=== PATIENT | female | born 1950 | race Caucasian/White ===

== ENCOUNTER 2020-04-05 13:27 | Emergency (ER) | payer MEDICARE, OTHER ==
[2020-04-05 13:34] VITALS: RESP 18; TEMP 98.3
--- NOTE | 2020-04-05 14:08 | ED ---
Extremity Problem HPI - General Chief complaint: Extremity Problem,Nontraumatic Stated complaint: Poss blood clot Time Seen by Provider: 04/05/20 13:36 Source: patient Mode of arrival: wheelchair Limitations: no limitations - History of Present Illness Initial comments: Patient is a 69-year-old female presenting to the emergency department from urgent care to rule out a DVT. Patient has been having right-sided groin and right upper leg pain for the past couple weeks. She states that she did have a fall a few weeks ago on her porch however she felt like the pain was there before her fall. One month ago she did drive to [place] from [place], spent approximately 3 days and out of the vehicle. She denies any surgeries of her right hip or right leg. She denies history of DVTs. She denies being on blood thinner. She states she went to urgent care today and they sent her in the ER for an ultrasound. Patient has no further complaints at this time. Upon arrival to the ER, her vital signs are stable. - Related Data Allergies Allergy/AdvReac Type Severity Reaction Status Date / Time No Known Allergies Allergy Verified 04/05/20 13:33 Review of Systems ROS Statement: Those systems with pertinent positive or pertinent negative responses have been documented in the HPI. ROS Other: All systems not noted in ROS Statement are negative. Past Medical History Past Medical History: COPD, Hypertension Additional Past Medical History / Comment(s): angina History of Any Multi-Drug Resistant Organisms: None Reported Additional Past Surgical History / Comment(s): ablation to bilateral legs. Past Psychological History: No Psychological Hx Reported Smoking Status: Current every day smoker Past Alcohol Use History: None Reported Past Drug Use History: None Reported General Exam - General Exam Comments Initial Comments: GENERAL: Patient is well-developed and well-nourished. Patient is nontoxic and in no acute distress. HEAD: Atraumatic, normocephalic. EYES: Pupils equal round and reactive to light, extraocular movements intact, sclera anicteric, conjunctiva are normal. Eyelids were unremarkable. ENT: TMs normal, nares patent, oropharynx clear without exudates. Moist mucous membranes. NECK: Normal range of motion, supple without lymphadenopathy or JVD. LUNGS: Unlabored respirations. Breath sounds clear to auscultation bilaterally and equal. No wheezes rales or rhonchi. HEART: Regular rate and rhythm without murmurs, rubs or gallops. ABDOMEN: Soft, nontender, normoactive bowel sounds. No guarding, no rebound. No masses appreciated. : Deferred MUSCULOSKELETAL: mild discomfort with palpation of the right anterior hip, full range of motion. She is neurovascular intact bilateral lower extremities. Normal extremities with adequate strength and normal range of motion, no pitting or edema. No clubbing or cyanosis. NEUROLOGICAL: Patient is alert and oriented x 3. Motor and sensory are also intact. Cranial nerves II through XII grossly intact. Symmetrical smile. Normal speech, normal gait. PSYCH: Normal mood, normal affect. SKIN: Warm, Dry, normal turgor, no rashes or lesions noted. Limitations: no limitations Course Vital Signs 04/05/20 13:29 Temperature 98.3 F Pulse Rate 76 Respiratory 18 Rate Blood Pressure 165/68 O2 Sat by Pulse 97 Oximetry Medical Decision Making - Medical Decision Making patient is a 69-year-old female sent in for possible DVT of the right lower extremity. She did have a very lengthy road trip one month ago and has been having right hip pain and right upper leg pain. X-rays reveal no acute frac tures dislocations. Ultrasound reveals no evidence of a DVT. I discussed with patient this is most likely arthritis or muscle skeletal in nature. I recommended anti-inflammatories. We will give her Toradol here in the ER. Patient is stable for discharge. Patient is in agreement with this plan of care. Return parameters were discussed with the patient and they verbalized un derstanding. Case discussed with Dr. Lamar. Disposition Clinical Impression: Right hip pain Disposition: HOME SELF-CARE Condition: Stable Instructions (If sedation given, give patient instructions): Hip Pain (ED) Additional Instructions: Please return to the Emergency Department if symptoms worsen or any other concerns. X-rays of the right hip and ultrasound of the right leg revealed no evidence of acute fractures or acute DVT. Please follow-up with your regular doctor or orthopedic if needed. Is patient prescribed a controlled substance at d/c from ED?: No Referrals: None,Stated [Primary Care Provider] - 1-2 days Howie Westbrook MD [STAFF PHYSICIAN] - 1-2 days
--- NOTE | 2020-04-05 15:09 | XR ---
EXAMINATION TYPE: XR Hip Complete RT DATE OF EXAM: 04/05/2020 COMPARISON: None HISTORY: Right hip pain TECHNIQUE: 2 view right hip supplemented with AP pelvis FINDINGS: Femoral head articulates with the acetabulum. No acute fractures or dislocations are eviden t. Left femoral head articulates with the acetabulum. Symphysis pubis and sacroiliac joints are normal. Normal bowel gas is present. IMPRESSION: 1. Normal 2 view right hip
--- NOTE | 2020-04-05 15:30 | US ---
EXAMINATION TYPE: US venous doppler duplex LE RT DATE OF EXAM: 04/05/2020 3:25 PM COMPARISON: NONE CLINICAL HISTORY: right upper leg pain, recent long car ride. Pain SIDE PERFORMED: Right TECHNIQUE: The lower extremity deep venous system is examined utilizing real time linear array sonog rosa with graded compression, doppler sonography and color-flow sonography. VESSELS IMAGED: Common Femoral Vein Deep Femoral Vein Greater Saphenous Vein * Femoral Vein Popliteal Vein Small Saphenous Vein * Proximal Calf Veins (* superficial vessels) Right Leg: Negative for DVT IMPRESSION: 1. Right lower extremity ultrasound negative for deep venous stenosis.
[2020-04-05] MEDS ORDERED: KETOROLAC 15 MG/ML 1 ML VIAL IM STA (15:36)
[2020-04-05 15:53] VITALS: BP 123/82; PULSE 78
== END 2020-04-05 15:52 | disposition home or self-care (01) ==
LOC: EC 13:27
DX: M25.551 Pain in right hip (principal); F17.200 Nicotine dependence, unspecified, uncomplicated
CPT/HCPCS: 73502; 93971; 99284; 96372; J1885

== ENCOUNTER → 2020-08-17 | Outpatient (CLI) | payer MEDICARE, OTHER ==
--- NOTE | 2020-08-17 15:02 | XR ---
EXAMINATION TYPE: XR chest 2V DATE OF EXAM: 08/17/2020 COMPARISON: NONE HISTORY: Worsening COPD TECHNIQUE: Frontal and lateral views of the chest are obtained. FINDINGS: There is no focal air space opacity, pleural effusion, or pneumothorax seen. The cardiac silhouette size is within normal limits. The osseous structures are intact. IMPRESSION: No acute cardiopulmonary process.
== END | disposition home or self-care (01) ==
LOC: RADXRMAIN 14:42
PROVIDERS: ATTEND Nurse Practitioner Family
DX: J44.9 Chronic obstructive pulmonary disease, unspecified (principal)
CPT/HCPCS: 71046

== ENCOUNTER 2024-04-25 08:50 | Inpatient (IN) | payer MEDICARE, OTHER ==
[2024-04-25] MEDS: IPRATROPIUM-ALBUTEROL 3 ML NEB INHALATION STA ×2 (09:11→12:52)
[2024-04-25] MEDS: MAGNESIUM SULFATE-D5W PMX 1 GM in DEXTROSE/WATER 1 100ML.BAG IVPB STA (09:24)
[2024-04-25] MEDS: methylPREDNISolone SOD SUCCI 125 MG/2 ML VIAL IV STA (09:24)
[2024-04-25] MEDS: SODIUM CHLORIDE 0.9% 1,000 ML IV STA (09:25)
[2024-04-25 09:37] LABS: Basophils % (A) 0 %; Eosinophils # (A) 0.1 k/uL (0-0.7); Eosinophils % (A) 0 %; HCT 38.7 % (34.0-46.0); HGB 11.7 gm/dL (11.4-16.0); Hypochromasia Moderate; Lymphocytes # (A) 1.2 k/uL (1.0-4.8); Lymphocytes % (A) 8 %; MCH 27.2 pg (25.0-35.0); MCHC 30.1 g/dL (31.0-37.0); MCV 90.4 fL (80.0-100.0); Mean Platelet Volume 7.8; Monocytes % (A) 7 %; Neutrophils # (A) 11.9 k/uL (1.3-7.7); Neutrophils % (A) 83 %; Platelet Count 229 k/uL (150-450); RBC 4.28 m/uL (3.80-5.40); RDW 15.7 % (11.5-15.5); WBC 14.3 k/uL (3.8-10.6)
[2024-04-25 09:38] LABS: Partial Thromboplastin Time 22.1 sec (22.0-30.0); Prothrombin Time 11.1 sec (10.0-12.5)
[2024-04-25 09:45] LABS: ALT 21 U/L (4-34); AST 37 U/L (14-36); African American GFR (CKD) 70 (>60 ml/min/1.73 sqM); Albumin 4.2 g/dL (3.5-5.0); Alkaline Phosphatase 108 U/L (38-126); Anion Gap 9 mmol/L; Blood Urea Nitrogen 21 mg/dL (7-17); Calcium 9.1 mg/dL (8.4-10.2); Carbon Dioxide 29 mmol/L (22-30); Chloride 100 mmol/L (98-107); Glucose 111 mg/dL (74-99); Magnesium 1.8 mg/dL (1.6-2.3); Non-African American GFR(CKD) 61 (>60 ml/min/1.73 sqM); Potassium 4.3 mmol/L (3.5-5.1); Sodium 138 mmol/L (137-145); Total Bilirubin 0.6 mg/dL (0.2-1.3); Total Protein 7.4 g/dL (6.3-8.2)
--- NOTE | 2024-04-25 09:50 | XR ---
EXAMINATION TYPE: XR chest 2V DATE OF EXAM: 04/25/2024 9:46 AM COMPARISON: None. CLINICAL INDICATION: Female, 73 years old with history of difficulty breathing, wheezing, short of br eath TECHNIQUE: XR chest 2V view(s) obtained. FINDINGS: The heart size is normal. The pulmonary vasculature is normal. The lungs are clear. IMPRESSION: 1. No acute pulmonary process. [facility], , 04/25/2024 9:48 AM
[2024-04-25 10:05] LABS: Influenza A Not Detected (Not Detectd); Influenza B Not Detected (Not Detectd); RSV Detected (Not Detectd)
[2024-04-25 10:23] LABS: Appearance,Urine Clear (Clear); Bilirubin,Urine Negative (Negative); Blood,Urine Trace (Negative); Color,Urine Yellow; Glucose,Urine (UA) Negative (Negative); Ketones,Urine Negative (Negative); Leukocyte Esterase,Urine Trace (Negative); Mucus,Urine Rare /hpf; Nitrite,Urine Negative (Negative); Protein,Urine Negative (Negative); RBC,Urine 1 /hpf (0-5); Squamous Epithelial Cell,Urine 2 /hpf (0-4); Urobilinogen,Urine <2.0 mg/dL (<2.0); WBC,Urine 1 /hpf (0-5)
[2024-04-25] MEDS ORDERED: ACETAMINOPHEN TAB 325 MG TAB PO PRN (12:21)
[2024-04-25] MEDS ORDERED: NALOXONE 0.4 MG/ML 1 ML VIAL IV PRN (12:21)
--- NOTE | 2024-04-25 12:23 | ED ---
General Adult HPI - General Chief complaint: Shortness of Breath Stated complaint: GLORIA Time Seen by Provider: 04/25/24 09:00 Source: patient, family, RN notes reviewed, old records reviewed Mode of arrival: wheelchair Limitations: no limitations - History of Present Illness Initial comments: Patient is a 73-year-old female presents emergency department complaining of shortness of breath. Presents to the emergency department complaining of s hortness of breath for few days. Seen at urgent care on Thursday and started treatment for bronchitis and COPD. States that she felt worse this morning. Was found to be hypoxic on room air in triage. Is not normally on any oxygen at home. Endorses cough productive of a darker sputum. Endorses increased work of breathing. Denies any chest pain, nausea, vomiting, abdominal pain. Has no other acute complaints. Presents for further evaluation at this time. - Related Data Home Medications Medication Instructions Recorded Confirmed Albuterol Sulfate [Albuterol 2 puff INHALATION RT-Q4H PRN 04/25/24 04/25/24 Sulfate Hfa] Atorvastatin [Lipitor] 10 mg PO DAILY 04/25/24 04/25/24 Doxycycline Hyclate 100 mg PO Q12H 04/25/24 04/25/24 Esomeprazole Magnesium [NexIUM] 40 mg PO DAILY 04/25/24 04/25/24 Fluticasone/Umeclidin/Vilanter 1 puff INHALATION RT-DAILY 04/25/24 04/25/24 [Trelegy Ellipta 200-62.5-25] Ipratropium-Albuterol Nebulize 3 ml INHALATION RT-Q6H PRN 04/25/24 04/25/24 [Duoneb 0.5 mg-3 mg/3 ml Soln] Levothyroxine Sodium [Synthroid] 25 mcg PO DAILY 04/25/24 04/25/24 Montelukast [Singulair] 10 mg PO DAILY 04/25/24 04/25/24 Nebivolol HCl 40 mg PO DAILY 04/25/24 04/25/24 Nitroglycerin Sl Tabs [Nitrostat] 0.4 mg SL Q5M PRN 04/25/24 04/25/24 Olmesartan Medoxomil 40 mg PO DAILY 04/25/24 04/25/24 Sertraline [Zoloft] 100 mg PO DAILY 04/25/24 04/25/24 amLODIPine [Norvasc] 5 mg PO DAILY 04/25/24 04/25/24 methylPREDNISolone [Medrol Dose See Taper PO DIRECTED 04/25/24 04/25/24 Pack] Allergies Allergy/AdvReac Type Severity Reaction Status Date / Time No Known Allergies Allergy Verified 04/25/24 10:39 Review of Systems ROS Statement: Those systems with pertinent positive or pertinent negative responses have been documented in the HPI. Review of Systems: CONST: Denies fever EYES: Denies blurry vision ENT: Endorses nasal congestion C/V: Denies Chest pain RESP: Endorses shortness of breath GI: Denies abdominal pain : Denies dysuria SKIN: Denies rash. MSK: Denies joint pain. NEURO: Denies headache ROS Other: All systems not noted in ROS Statement are negative. Past Medical History Past Medical History: COPD, Hypertension Additional Past Medical History / Comment(s): angina History of Any Multi-Drug Resistant Organisms: None Reported Additional Past Surgical History / Comment(s): ablation to bilateral legs. Past Psychological History: No Psychological Hx Reported Smoking Status: Current every day smoker Past Alcohol Use History: None Reported Past Drug Use History: None Reported General Exam - General Exam Comments Initial Comments: General: Increased work of breathing. HEAD: Normal with no signs of head trauma. EYES: PERRLA, EOMI, conjunctiva normal, no discharge. ENT: Hearing grossly intact, normal oropharynx. RESPIRATORY: Bilateral coarse wheezes with hypoxia on room air to 84%. Increased work of breathing. Oxygenation improved on nasal cannula oxygen. C/V: Regular rate and rhythm. S1 and S2 auscultated, no edema, peripheral pulses 2+ and intact throughout ABD: Abd is soft, nontender, nondistended EXT: Normal range of motion, no obvious deformity SKIN: No rashes or lesions observed on exposed skin. NEURO: Alert and oriented x 4. Limitations: no limitations Course Vital Signs 04/25/24 04/25/24 04/25/24 08:51 09:12 09:29 Temperature 97.7 F Pulse Rate 79 66 64 Respiratory 28 H Rate Blood Pressure 245/105 166/87 O2 Sat by Pulse 84 L Oximetry 04/25/24 04/25/24 04/25/24 10:38 11:28 12:20 Temperature 97.5 F L Pulse Rate 61 61 65 Respiratory 24 20 22 Rate Blood Pressure 166/87 146/75 158/83 O2 Sat by Pulse 100 100 97 Oximetry 04/25/24 04/25/24 04/25/24 12:42 12:43 12:52 Temperature Pulse Rate 61 Respiratory Rate Blood Pressure O2 Sat by Pulse 86 L 95 96 Oximetry 04/25/24 04/25/24 04/25/24 13:14 13:28 14:32 Temperature Pulse Rate 60 63 67 Respiratory 22 20 Rate Blood Pressure 138/71 136/66 O2 Sat by Pulse 95 95 Oximetry Medical Decision Making - Medical Decision Making Was pt. sent in by a medical professional or institution (, PA, MANAGER STORE, urgent care, hospital, or skilled nursing...) When possible be specific @ -No Did you speak to anyone other than the patient for history (EMS, parent, family, police, friend...)? What history was obtained from this source @ -No Did you review nursing and triage notes (agree or disagree)? Why? @ -I reviewed and agree with nursing and triage notes Were old charts reviewed (outside hosp., previous admission, EMS record, old EKG, old radiological studies, urgent care reports/EKG's, skilled nursing records)? Report findings @ -Old charts reviewed confirming history of COPD Differential Diagnosis (chest pain, altered mental status, abdominal pain women, abdominal pain men, vaginal bleeding, weakness, fever, dyspnea, syncope, headache, dizziness, GI bleed, back pain, seizure, CVA, palpatations, mental health, musculoskeletal)? @ -Differential Dyspnea: Coronary syndrome, arrhythmia, tamponade, asthma, COPD, pulmonary embolism, pneumonia, pneumothorax, pulmonary effusion, anaphylaxis, diabetic ketoacidosis, flailed chest, pulmonary contusion, diaphragmatic rupture, anemia, neuromuscular, this is not meant to be an all-inclusive list. EKG interpreted by me (3pts min.). @ -As above X-rays interpreted by me (1pt min.). @ -Chest x-ray reveals no obvious acute cardiopulmonary process CT interpreted by me (1pt min.). @ -None done U/S interpreted by me (1pt. min.). @ -None done What testing was considered but not performed or refused? (CT, X-rays, U/S, labs)? Why? @ -None What meds were considered but not given or refused? Why? @ -None Did you discuss the management of the patient with other professionals (professionals i.e. , PA, MANAGER STORE, lab, RT, psych nurse, social services manager, pier hand helper, teacher, commercial escrow officer, casework supervisor)? Give summary @ -Discussed with the admitting provider, Dr. Larson of [facility] who accepted the admission. Was smoking cessation discussed for >3mins.? @ -No Was critical care preformed (if so, how long)? @ -Yes, 33 minutes Were there social determinants of health that impacted care today? How? (Homelessness, low income, unemployed, alcoholism, drug addiction, transp ortation, low edu. Level, literacy, decrease access to med. care, residential, rehab)? @ -No Was there de-escalation of care discussed even if they declined (Discuss DNR or withdrawal of care, Hospice)? DNR status @ -No What co-morbidities impacted this encounter? (DM, HTN, Smoking, COPD, CAD, Cancer, CVA, ARF, Chemo, Hep., AIDS, mental health diagnosis, sleep apnea, morbid obesity)? @ -COPD Was patient admitted / discharged? Hospital course, mention meds given and route, prescriptions, significant lab abnormalities, going to OR and other pertinent info. @ -Patient presents to the emergency department acute hypoxic respiratory failure likely secondary to URI symptoms and COPD. Vital signs remarkable for hypoxia in triage on room air which improved on 4 L nasal cannula oxygen. Patient be symptomatically treated with IV steroids, fluids as well as a breathing treatment. Patient was in agreement this plan. Vital signs are within acceptable limits otherwise. EKG shows no signs of acute ischemia. Chest x-ray unremarkable. Laboratory studies are remarkable for leukocytosis of 14 however this is likely reactive. Patient is positive for RSV bronchiolitis. I discussed the results with the patient. She is still requiring nasal cannula oxygen. Patient will be admitted at this time. Will continue with IV steroid use, IV fluids, as well as breathing treatments. I did discuss that antibiotics are not indicated for viral infection she was in agreement this plan. Pulmonology consulted. Patient admitted to medicine. Spoke with the admitting team, Dr. Larson of [facility] who accepted the admission. Undiagnosed new problem with uncertain prognosis? @ -No Drug Therapy requiring intensive monitoring for toxicity (Heparin, Nitro, Insulin, Cardizem)? @ -No Were any procedures done? @ -No Diagnosis/symptom? @ -Acute hypoxic respiratory failure secondary to COPD and RSV bronchiolitis Acute, or Chronic, or Acute on Chronic? @ -Acute Uncomplicated (without systemic symptoms) or Complicated (systemic symptoms)? @ -Complicated Side effects of treatment? @ -No Exacerbation, Progression, or Severe Exacerbation? @ -No Poses a threat to life or bodily function? How? (Chest pain, [place], [place], pneumonia, PE, COPD, DKA, ARF, appy, cholecystitis, CVA, Diverticulitis, Homicidal, Suicidal, threat to staff... and all critical care pts) @ -Yes - Lab Data Result diagrams: 04/25/24 09:16 04/25/24 09:16 Lab Results 04/25/24 04/25/24 04/25/24 Range/Units 09:16 09:16 09:16 WBC 14.3 H (3.8-10.6) k/uL RBC 4.28 (3.80-5.40) m/uL Hgb 11.7 (11.4-16.0) gm/dL Hct 38.7 (34.0-46.0) % MCV 90.4 (80.0-100.0) fL MCH 27.2 (25.0-35.0) pg MCHC 30.1 L (31.0-37.0) g/dL RDW 15.7 H (11.5-15.5) % Plt Count 229 (150-450) k/uL MPV 7.8 Neutrophils % 83 % Lymphocytes % 8 % Monocytes % 7 % Eosinophils % 0 % Basophils % 0 % Neutrophils # 11.9 H (1.3-7.7) k/uL Lymphocytes # 1.2 (1.0-4.8) k/uL Monocytes # 1.0 (0-1.0) k/uL Eosinophils # 0.1 (0-0.7) k/uL Basophils # 0.0 (0-0.2) k/uL Hypochromasia Moderate PT 11.1 (10.0-12.5) sec INR 1.0 (<1.2) APTT 22.1 (22.0-30.0) sec Sodium (137-145) mmol/L Potassium (3.5-5.1) mmol/L Chloride (98-107) mmol/L Carbon Dioxide (22-30) mmol/L Anion Gap mmol/L BUN (7-17) mg/dL Creatinine (0.52-1.04) mg/dL Est GFR (CKD-EPI)AfAm (>60 ml/min/1.73 sqM) Est GFR (CKD-EPI)NonAf (>60 ml/min/1.73 sqM) Glucose (74-99) mg/dL Plasma Lactic Acid Avel (0.7-2.0) mmol/L Calcium (8.4-10.2) mg/dL Magnesium (1.6-2.3) mg/dL Total Bilirubin (0.2-1.3) mg/dL AST (14-36) U/L ALT (4-34) U/L Alkaline Phosphatase (38-126) U/L Total Protein (6.3-8.2) g/dL Albumin (3.5-5.0) g/dL Urine Color Yellow Urine Appearance Clear (Clear) Urine pH 5.0 (5.0-8.0) Ur Specific [place] 1.020 (1.001-1.035) Urine Protein Negative (Negative) Urine Glucose (UA) Negative (Negative) Urine Ketones Negative (Negative) Urine Blood Trace H (Negative) Urine Nitrite Negative (Negative) Urine Bilirubin Negative (Negative) Urine Urobilinogen <2.0 (<2.0) mg/dL Ur Leukocyte Esterase Trace H (Negative) Urine RBC 1 (0-5) /hpf Urine WBC 1 (0-5) /hpf Ur Squamous Epith Cells 2 (0-4) /hpf Urine Mucus Rare H (None) /hpf Influenza Type A (PCR) (Not Detectd) Influenza Type B (PCR) (Not Detectd) RSV (PCR) (Not Detectd) SARS-CoV-2 (PCR) (Not Detectd) 04/25/24 04/25/24 04/25/24 Range/Units 09:16 09:16 09:16 WBC (3.8-10.6) k/uL RBC (3.80-5.40) m/uL Hgb (11.4-16.0) gm/dL Hct (34.0-46.0) % MCV (80.0-100.0) fL MCH (25.0-35.0) pg MCHC (31.0-37.0) g/dL RDW (11.5-15.5) % Plt Count (150-450) k/uL MPV Neutrophils % % Lymphocytes % % Monocytes % % Eosinophils % % Basophils % % Neutrophils # (1.3-7.7) k/uL Lymphocytes # (1.0-4.8) k/uL Monocytes # (0-1.0) k/uL Eosinophils # (0-0.7) k/uL Basophils # (0-0.2) k/uL Hypochromasia PT (10.0-12.5) sec INR (<1.2) APTT (22.0-30.0) sec Sodium 138 (137-145) mmol/L Potassium 4.3 (3.5-5.1) mmol/L Chloride 100 (98-107) mmol/L Carbon Dioxide 29 (22-30) mmol/L Anion Gap 9 mmol/L BUN 21 H (7-17) mg/dL Creatinine 0.93 (0.52-1.04) mg/dL Est GFR (CKD-EPI)AfAm 70 (>60 ml/min/1.73 sqM) Est GFR (CKD-EPI)NonAf 61 (>60 ml/min/1.73 sqM) Glucose 111 H (74-99) mg/dL Plasma Lactic Acid Avel 1.2 (0.7-2.0) mmol/L Calcium 9.1 (8.4-10.2) mg/dL Magnesium 1.8 (1.6-2.3) mg/dL Total Bilirubin 0.6 (0.2-1.3) mg/dL AST 37 H (14-36) U/L ALT 21 (4-34) U/L Alkaline Phosphatase 108 (38-126) U/L Total Protein 7.4 (6.3-8.2) g/dL Albumin 4.2 (3.5-5.0) g/dL Urine Color Urine Appearance (Clear) Urine pH (5.0-8.0) Ur Specific [place] (1.001-1.035) Urine Protein (Negative) Urine Glucose (UA) (Negative) Urine Ketones (Negative) Urine Blood (Negative) Urine Nitrite (Negative) Urine Bilirubin (Negative) Urine Urobilinogen (<2.0) mg/dL Ur Leukocyte Esterase (Negative) Urine RBC (0-5) /hpf Urine WBC (0-5) /hpf Ur Squamous Epith Cells (0-4) /hpf Urine Mucus (None) /hpf Influenza Type A (PCR) Not Detected (Not Detectd) Influenza Type B (PCR) Not Detected (Not Detectd) RSV (PCR) Detected A (Not Detectd) SARS-CoV-2 (PCR) Not Detected (Not Detectd) - EKG Data -: EKG Interpreted by Me EKG Comments: 12-lead Electrocardiogram Interpretation Note EKG was reviewed and interpreted by myself. 12-lead ECG performed at 0908 is interpreted by me as revealing normal sinus rhythm at a rate of 64 beats per minute. [place] is normal. [place] interval is 153 ms, QRS durations 82 ms, QTc is 394 ms.. There were no ST or T wave abnormalities to suggest myocardial ischemia or injury. R wave progression across the precordium was satisfactory. By my interpretation this EKG is non-diagnostic for acute ischemia. Critical Care Time Critical Care Time: Yes Total Critical Care Time: 33 Disposition Clinical Impression: COPD (chronic obstructive pulmonary disease), Hypoxic respiratory failure, RSV bronchiolitis Disposition: ADMITTED IP TO THIS HOSP Condition: Serious Time of Disposition: 12:05
[2024-04-25] MEDS: SODIUM CHLORIDE 0.9% 1,000 ML IV SCH (12:37)
[2024-04-25] MEDS: methylPREDNISolone SOD SUCCI 40 MG/ML 1 ML VIAL IV SCH (15:35)
[2024-04-25] MEDS: IPRATROPIUM-ALBUTEROL 3 ML NEB INHALATION SCH (16:08)
--- NOTE | 2024-04-25 18:56 | P.HPIM ---
History of Present Illness Patient is a pleasant 73 years old female with past medical history as below Presents because of shortness of breath of 10 days duration Patient complaining from cough and clear phlegm but no overt chest pain She smokes about half pack per day and she was counseled to quit, she declines nicotine patch. No alcohol or illicit drugs No other new complaint like abdominal pain vomiting diarrhea no urinary complaint or headache dizziness weakness numbness She was saturating 85% on room air, currently she is mildly tachypneic She has unremarkable labs except for mild leukocytosis of 14.1, rest of CBC, BMP LFT is unremarkable RSV virus is positive while negative influenza and COVID Chest x-ray showing no acute process, I reviewed myself and agree EKG showing sinus rhythm at [address]-T changes Review of Systems Review of systems CONSTITUTIONAL: No fever, no malaise, no fatigue. HEENT: No recent visual problems or hearing problems. Denied any sore throat. CARDIOVASCULAR: No orthopnea, PND, no palpitations, no syncope. PULMONARY: No chest wall tenderness, no hemoptysis. GASTROINTESTINAL: No diarrhea, no nausea, no vomiting, no abdominal pain. Normoactive bowel sounds. NEUROLOGICAL: No headaches, no weakness, no numbness. HEMATOLOGICAL: Denies any bleeding or petechiae. GENITOURINARY: Denies any burning micturition, frequency, or urgency. MUSCULOSKELETAL/RHEUMATOLOGICAL: Denies any joint pain, swelling, or any muscle pain. ENDOCRINE: Denies any polyuria or polydipsia. Past Medical History Past Medical History: COPD, Hypertension Additional Past Medical History / Comment(s): angina History of Any Multi-Drug Resistant Organisms: None Reported Additional Past Surgical History / Comment(s): ablation to bilateral legs. Past Psychological History: No Psychological Hx Reported Smoking Status: Current every day smoker Past Alcohol Use History: None Reported Past Drug Use History: None Reported Medications and Allergies Home Medications Medication Instructions Recorded Confirmed Type Albuterol Sulfate [Albuterol 2 puff INHALATION RT-Q4H PRN 04/25/24 04/25/24 History Sulfate Hfa] Atorvastatin [Lipitor] 10 mg PO DAILY 04/25/24 04/25/24 History Doxycycline Hyclate 100 mg PO Q12H 04/25/24 04/25/24 History Esomeprazole Magnesium [NexIUM] 40 mg PO DAILY 04/25/24 04/25/24 History Fluticasone/Umeclidin/Vilanter 1 puff INHALATION RT-DAILY 04/25/24 04/25/24 History [Trelegy Ellipta 200-62.5-25] Ipratropium-Albuterol Nebulize 3 ml INHALATION RT-Q6H PRN 04/25/24 04/25/24 History [Duoneb 0.5 mg-3 mg/3 ml Soln] Levothyroxine Sodium [Synthroid] 25 mcg PO DAILY 04/25/24 04/25/24 History Montelukast [Singulair] 10 mg PO DAILY 04/25/24 04/25/24 History Nebivolol HCl 40 mg PO DAILY 04/25/24 04/25/24 History Nitroglycerin Sl Tabs [Nitrostat] 0.4 mg SL Q5M PRN 04/25/24 04/25/24 History Olmesartan Medoxomil 40 mg PO DAILY 04/25/24 04/25/24 History Sertraline [Zoloft] 100 mg PO DAILY 04/25/24 04/25/24 History amLODIPine [Norvasc] 5 mg PO DAILY 04/25/24 04/25/24 History methylPREDNISolone [Medrol Dose See Taper PO DIRECTED 04/25/24 04/25/24 History Pack] Allergies Allergy/AdvReac Type Severity Reaction Status Date / Time No Known Allergies Allergy Verified 04/25/24 10:39 Physical Exam Vitals: Vital Signs Temp Pulse Resp BP Pulse Ox 04/25/24 17:58 97.7 F 68 18 136/57 96 04/25/24 16:18 63 04/25/24 16:08 65 04/25/24 16:03 64 20 141/80 96 04/25/24 15:37 97.3 F L 66 20 132/84 96 04/25/24 14:32 67 20 136/66 95 04/25/24 13:28 63 22 138/71 95 04/25/24 13:14 60 04/25/24 12:52 61 96 04/25/24 12:43 95 04/25/24 12:42 86 L 04/25/24 12:20 65 22 158/83 97 04/25/24 11:28 97.5 F L 61 20 146/75 100 04/25/24 10:38 61 24 166/87 100 02/24/25 09:29 64 04/25/24 09:12 66 166/87 04/25/24 08:51 97.7 F 79 28 H 245/105 84 L Intake and Output 04/25/24 04/25/24 04/25/24 06:59 14:59 22:59 Other: Weight 85.729 kg GENERAL: The patient is alert and oriented x3, not in any acute distress. Well developed, well nourished. HEENT: Pupils are round and equally reacting to light. EOMI. No scleral icterus. No conjunctival pallor. Normocephalic, atraumatic. No pharyngeal erythema. No thyromegaly. CARDIOVASCULAR: S1 and S2 present. No murmurs, rubs, or gallops. -PULMONARY: Chest is clear to auscultation, extensive bilateral wheezing , no crackles. ABDOMEN: Soft, nontender, nondistended, normoactive bowel sounds. No palpable organomegaly. MUSCULOSKELETAL: No joint swelling or deformity. EXTREMITIES: No cyanosis, clubbing, or pedal edema. NEUROLOGICAL: Gross neurological examination did not reveal any focal deficits. SKIN: No rashes. no petechiae. Results CBC & Chem 7: 04/25/24 09:16 04/25/24 09:16 Labs: Abnormal Lab Results - Last 24 Hours (Table) 04/25/24 04/25/24 04/25/24 Range/Units 09:16 09:16 09:16 WBC 14.3 H (3.8-10.6) k/uL MCHC 30.1 L (31.0-37.0) g/dL RDW 15.7 H (11.5-15.5) % Neutrophils # 11.9 H (1.3-7.7) k/uL BUN 21 H (7-17) mg/dL Glucose 111 H (74-99) mg/dL AST 37 H (14-36) U/L Urine Blood Trace H (Negative) Ur Leukocyte Esterase Trace H (Negative) Urine Mucus Rare H (None) /hpf RSV (PCR) (Not Detectd) 04/25/24 Range/Units 09:16 WBC (3.8-10.6) k/uL MCHC (31.0-37.0) g/dL RDW (11.5-15.5) % Neutrophils # (1.3-7.7) k/uL BUN (7-17) mg/dL Glucose (74-99) mg/dL AST (14-36) U/L Urine Blood (Negative) Ur Leukocyte Esterase (Negative) Urine Mucus (None) /hpf RSV (PCR) Detected A (Not Detectd) Assessment and Plan Assessment: Acute COPD exacerbation precipitated by viral infection RSV viral infection with bronchitis Acute hypoxic respiratory failure, present on admission Nicotine dependence Obesity with BMI of 35 Plan: Continue with IV Solu-Medrol Continue with bronchodilator Oxygen as needed Pulmonary team consult Labs and medication were reviewed.. Continue same treatment. Continue with symptomatic treatment. Resume home medication. Monitor labs and vitals. DVT and GI prophylaxis. Further recommendations as per clinical course of the patient DVT prophylaxis: Subcutaneous heparin GI Prophylaxis: Pepcid PT/OT: Pending Prognosis is guarded
[2024-04-25] MEDS: HEPARIN SODIUM,PORCINE 5,000 UNIT/ML 1 ML VIAL SQ SCH (20:00)
[2024-04-25] MEDS: FAMOTIDINE 20 MG/2 ML VIAL IV SCH (20:00)
--- NOTE | 2024-04-26 02:38 | P.CNPUL ---
History of Present Illness Consult date: 04/26/24 Requesting physician: Jose Miguel Hammond Reason for consult: COPD Chief complaint: Shortness of breath, cough History of present illness: Patient is a 73-year-old female with past medical history significant for hypertension, hyperlipidemia, hypothyroidism, COPD, and current everyday smoker. Her primary care provider is a PA, Gretchen, out of Dr. Eboni Gamble's office. Presented to emergency department yesterday morning with difficulty in breathing, wheezing, and chest tightness worse over the last 2-3 days. Also, reporting associated rhinorrhea, sore throat, cough with yellow sputum production, reduced appetite. Daughter was sick with similar symptoms approximately 1 to 2 weeks ago. Recently seen at a local urgent care center on Thursday and was treated for COPD exacerbation. Reportedly, given oral steroids and antibiotic. Unfortunately, her symptoms did not improve. Workup in our emergency department including viral screen which was remarkable for RSV. A chest x-ray which did not show any acute cardiopulmonary process. CBC: WBC count 14.3, hemoglobin 11.7, hematocrit 38.7, platelets 229. CMP: Sodium 138, potassium 4.3, chloride 100, serum bicarb 29, BUN 21, creatinine 0.93, glucose 111. LFTs unremarkable. EKG: Normal sinus rhythm, rate 64 bpm, no acute ischemic changes. Patient currently being evaluated on general medical floor. Resting comfortably on 3 L/min nasal cannula. Denies home O2 use. Does endorse history of COPD. Uses a Trelegy inhaler, as needed DuoNebs, as well as a albuterol rescue inhaler. Current ongoing tobacco smoker, smokes 1/2 to 1 pack/day. Has diffuse expiratory wheezing heard bilaterally on auscultation. Endorses the above-mentioned symptoms. Denies any nausea, vomiting, diarrhea. He is tolerating oral fluids. No significant fevers or chills. No hemoptysis, chest pain. Current vital signs: Temperature 98 F, heart rate 63 bpm, blood pressure 129/58 mmHg, nontachypneic, SpO2 reading 95% on 3 L per nasal cannula. Review of Systems Constitutional: Reports fatigue, Reports poor appetite, Denies chills, Denies fever, Denies night sweats, Denies weight gain, Denies weight loss Ears, nose, mouth and throat: Reports nasal congestion, Reports nasal discharge, Reports post-nasal drip, Reports sore throat, Denies headache, Denies sinus pain, Denies sinus pressure, Denies voice changes Cardiovascular: Reports dyspnea on exertion, Denies chest pain, Denies leg edema, Denies lightheadedness, Denies orthopnea, Denies palpitations, Denies paroxysmal nocturnal dyspnea, Denies syncope Respiratory: Reports as per HPI Gastrointestinal: Denies abdominal pain, Denies diarrhea, Denies nausea, Denies vomiting Genitourinary: Denies dysuria, Denies flank pain, Denies hematuria Musculoskeletal: Denies limitation of motion Integumentary: Denies rash Neurological: Denies seizures, Denies syncope Psychiatric: Denies anxiety, Denies depression, Denies suicidal ideation Past Medical History Past Medical History: COPD, Hypertension Additional Past Medical History / Comment(s): angina History of Any Multi-Drug Resistant Organisms: None Reported Additional Past Surgical History / Comment(s): ablation to bilateral legs. Past Anesthesia/Blood Transfusion Reactions: No Reported Reaction Past Psychological History: No Psychological Hx Reported Smoking Status: Current every day smoker Past Alcohol Use History: None Reported Past Drug Use History: None Reported Medications and Allergies Home Medications Medication Instructions Recorded Confirmed Type Albuterol Sulfate [Albuterol 2 puff INHALATION RT-Q4H PRN 04/25/24 04/25/24 History Sulfate Hfa] Atorvastatin [Lipitor] 10 mg PO DAILY 04/25/24 04/25/24 History Doxycycline Hyclate 100 mg PO Q12H 04/25/24 04/25/24 History Esomeprazole Magnesium [NexIUM] 40 mg PO DAILY 04/25/24 04/25/24 History Fluticasone/Umeclidin/Vilanter 1 puff INHALATION RT-DAILY 04/25/24 04/25/24 History [Trelegy Ellipta 200-62.5-25] Ipratropium-Albuterol Nebulize 3 ml INHALATION RT-Q6H PRN 04/25/24 04/25/24 History [Duoneb 0.5 mg-3 mg/3 ml Soln] Levothyroxine Sodium [Synthroid] 25 mcg PO DAILY 04/25/24 04/25/24 History Montelukast [Singulair] 10 mg PO DAILY 04/25/24 04/25/24 History Nebivolol HCl 40 mg PO DAILY 04/25/24 04/25/24 History Nitroglycerin Sl Tabs [Nitrostat] 0.4 mg SL Q5M PRN 04/25/24 04/25/24 History Olmesartan Medoxomil 40 mg PO DAILY 04/25/24 04/25/24 History Sertraline [Zoloft] 100 mg PO DAILY 04/25/24 04/25/24 History amLODIPine [Norvasc] 5 mg PO DAILY 04/25/24 04/25/24 History methylPREDNISolone [Medrol Dose See Taper PO DIRECTED 04/25/24 04/25/24 History Pack] Allergies Allergy/AdvReac Type Severity Reaction Status Date / Time No Known Allergies Allergy Verified 04/25/24 10:39 Physical Exam Vitals: Vital Signs Temp Pulse Pulse Resp BP BP Pulse Ox 04/26/24 00:29 98.0 F 63 19 129/58 95 04/26/24 00:22 62 04/26/24 00:04 59 L 04/25/24 21:22 66 04/25/24 21:09 68 04/25/24 19:15 98.1 F 64 21 166/79 95 04/25/24 17:58 97.7 F 68 18 136/57 96 04/25/24 16:18 63 04/25/24 16:08 65 04/25/24 16:03 64 20 141/80 96 04/25/24 15:37 97.3 F L 66 20 132/84 96 04/25/24 14:32 67 20 136/66 95 04/25/24 13:28 63 22 138/71 95 04/25/24 13:14 60 04/25/24 12:52 61 96 04/25/24 12:43 95 04/25/24 12:42 86 L 04/25/24 12:20 65 22 158/83 97 04/25/24 11:28 97.5 F L 61 20 146/75 100 04/25/24 10:38 61 24 166/87 100 04/25/24 09:29 64 04/25/24 09:12 66 166/87 04/25/24 08:51 97.7 F 79 28 H 245/105 84 L Intake and Output 04/25/24 04/25/24 04/26/24 14:59 22:59 06:59 Other: Weight 85.729 kg 85.729 kg GENERAL EXAM: Alert, 73-year-old female, on 3 L/min nasal cannula, fairly comfortable in no apparent distress. HEAD: Normocephalic and atraumatic EYES: Normal reaction of pupils, equal size. NOSE: Clear with pink turbinates. THROAT: No erythema or exudates. NECK: No masses, no JVD. CHEST: No chest wall deformity. LUNGS: Equal air entry with diffuse expiratory wheezing heard bilaterally and throughout. No conversational dyspnea or accessory muscle use.. CVS: S1 and S2 normal with no audible murmur, regular rhythm. No extra heart sounds ABDOMEN: No hepatosplenomegaly, active bowel sounds, no guarding or rigidity. SPINE: No scoliosis or deformity SKIN: No rashes CENTRAL NERVOUS SYSTEM: No focal deficits, tone is normal in all 4 extremities. EXTREMITIES: There is no peripheral edema, clubbing, or cyanosis. Peripheral pulses are intact. Results - Laboratory Findings CBC and BMP: 04/25/24 09:16 04/25/24 09:16 PT/INR, D-dimer PT 11.1 sec (10.0-12.5) 04/25/24 09:16 INR 1.0 (<1.2) 04/25/24 09:16 Abnormal lab findings: Abnormal Labs 04/25/24 04/25/24 04/25/24 09:16 09:16 09:16 WBC 14.3 H MCHC 30.1 L RDW 15.7 H Neutrophils # 11.9 H BUN 21 H Glucose 111 H AST 37 H Urine Blood Trace H Ur Leukocyte Esterase Trace H Urine Mucus Rare H RSV (PCR) 04/25/24 09:16 WBC MCHC RDW Neutrophils # BUN Glucose AST Urine Blood Ur Leukocyte Esterase Urine Mucus RSV (PCR) Detected A - Diagnostic Findings Chest x-ray: image reviewed Assessment and Plan Assessment: Acute RSV bronchitis Acute COPD exacerbation, secondary to above Acute hypoxemic respiratory failure, currently on 3 L/min nasal cannula Hypertension History of hyperlipidemia Obesity, BMI of 35.7 kg/m Current ongoing tobacco dependence, with over [id number] history Plan: Patient's medications, labs, chest x-ray reviewed Continue supplemental oxygen maintain oxygen saturation of 92% or greater Continue supportive care Continue DuoNebs [id number], Symbicort inhaler, and IV Solu-Medrol Tylenol as needed for fever/pain Tolerating oral fluids As needed Tessalon Perles for cough We will continue to follow I have personally seen and examined the patient, performed the documentation and the assessment and plan as written. Number of minutes spent on the visit:20 Time with Patient: Greater than 30
[2024-04-26 04:23] LABS: Basophils % (A) 0 %; Eosinophils % (A) 0 %; HCT 34.8 % (34.0-46.0); HGB 10.4 gm/dL (11.4-16.0); Hypochromasia Marked; Lymphocytes # (A) 0.8 k/uL (1.0-4.8); Lymphocytes % (A) 7 %; MCH 27.5 pg (25.0-35.0); MCHC 29.9 g/dL (31.0-37.0); MCV 92.2 fL (80.0-100.0); Mean Platelet Volume 7.6; Monocytes # (A) 0.5 k/uL (0-1.0); Monocytes % (A) 4 %; Neutrophils # (A) 10.2 k/uL (1.3-7.7); Neutrophils % (A) 88 %; Platelet Count 217 k/uL (150-450); RBC 3.78 m/uL (3.80-5.40); RDW 15.3 % (11.5-15.5); WBC 11.6 k/uL (3.8-10.6)
[2024-04-26] MEDS: methylPREDNISolone SOD SUCCI 125 MG/2 ML VIAL IV SCH (05:55)
[2024-04-26] MEDS: BENZONATATE 100 MG CAP PO PRN (08:05)
[2024-04-26] MEDS: SYMBICORT 160-4.5 MCG INHALER INHALATION SCH (08:23)
[2024-04-26 08:47] LABS: ALT 21 U/L (8-44); AST 31 U/L (13-35); Albumin 3.7 g/dL (3.8-4.9); Albumin/Globulin Ratio 1.42 Ratio (1.60-3.17); Alkaline Phosphatase 100 U/L (41-126); BUN/Creat Ratio 30.86 Ratio (12.00-20.00); Blood Urea Nitrogen 21.6 mg/dL (9.0-27.0); Calcium 8.8 mg/dL (8.7-10.3); Carbon Dioxide 23.6 mmol/L (21.6-31.8); Chloride 105 mmol/L (96-109); Globulin 2.6 g/dL (1.6-3.3); Glucose 127 mg/dL (70-110); Potassium 4.5 mmol/L (3.5-5.5); Sodium 139 mmol/L (135-145); Total Bilirubin 0.3 mg/dL (0.3-1.2); Total Protein 6.3 g/dL (6.2-8.2)
[2024-04-26] MEDS ORDERED: NITROGLYCERIN SL TABS 0.4 MG TAB SUBLINGUAL PRN (11:00)
--- NOTE | 2024-04-26 11:00 | P.PN ---
Subjective Patient is a pleasant 73 years old female with past medical history as below Presents because of shortness of breath of 10 days duration Patient complaining from cough and clear phlegm but no overt chest pain She smokes about half pack per day and she was counseled to quit, she declines nicotine patch. No alcohol or illicit drugs No other new complaint like abdominal pain vomiting diarrhea no urinary complaint or headache dizziness weakness numbness She was saturating 85% on room air, currently she is mildly tachypneic She has unremarkable labs except for mild leukocytosis of 14.1, rest of CBC, BMP LFT is unremarkable RSV virus is positive while negative influenza and COVID Chest x-ray showing no acute process, I reviewed myself and agree EKG showing sinus rhythm at [address]-T changes 04/26 Patient still has extensive wheezing She remains on 2 L oxygen via nasal cannula She is on Solu-Medrol 60 mg increased dose yesterday She is eating well with no diarrhea. She is not getting IV fluids Objective - Vital Signs Vital signs: Vital Signs Temp 97.8 F 04/26/24 07:45 Pulse 76 04/26/24 08:37 Resp 19 04/26/24 07:45 BP 132/61 04/26/24 07:45 Pulse Ox 96 04/26/24 07:45 FiO2 Intake & Output 04/25/24 04/26/24 04/26/24 18:59 06:59 18:59 Weight 85.729 kg 85.729 kg Other: # Voids 2 - Exam GENERAL: The patient is alert and oriented x3, not in any acute distress. Well developed, well nourished. HEENT: Pupils are round and equally reacting to light. EOMI. No scleral icterus. No conjunctival pallor. Normocephalic, atraumatic. No pharyngeal erythema. No thyromegaly. CARDIOVASCULAR: S1 and S2 present. No murmurs, rubs, or gallops. -PULMONARY: Chest is clear to auscultation, extensive bilateral wheezing , no crackles. ABDOMEN: Soft, nontender, nondistended, normoactive bowel sounds. No palpable organomegaly. MUSCULOSKELETAL: No joint swelling or deformity. EXTREMITIES: No cyanosis, clubbing, or pedal edema. NEUROLOGICAL: Gross neurological examination did not reveal any focal deficits. SKIN: No rashes. no petechiae. - Labs CBC & Chem 7: 04/26/24 03:01 04/26/24 03:01 Labs: Abnormal Lab Results - Last 24 Hours (Table) 04/26/24 04/26/24 Range/Units 03:01 03:01 WBC 11.6 H (3.8-10.6) k/uL RBC 3.78 L (3.80-5.40) m/uL Hgb 10.4 L (11.4-16.0) gm/dL MCHC 29.9 L (31.0-37.0) g/dL Neutrophils # 10.2 H (1.3-7.7) k/uL Lymphocytes # 0.8 L (1.0-4.8) k/uL BUN/Creatinine Ratio 30.86 H (12.00-20.00) Ratio Glucose 127 H (70-110) mg/dL Albumin 3.7 L (3.8-4.9) g/dL Albumin/Globulin Ratio 1.42 L (1.60-3.17) Ratio Assessment and Plan Assessment: Acute COPD exacerbation precipitated by viral infection RSV viral infection with bronchitis Acute hypoxic respiratory failure, present on admission Nicotine dependence Obesity with BMI of 35 Plan: Continue with IV Solu-Medrol Continue with bronchodilator Oxygen as needed Pulmonary team consult Labs and medication were reviewed.. Continue same treatment. Continue with symptomatic treatment. Resume home medication. Monitor labs and vitals. DVT and GI prophylaxis. Further recommendations as per clinical course of the patient DVT prophylaxis: Subcutaneous heparin GI Prophylaxis: Pepcid PT/OT: Pending Prognosis is guarded
[2024-04-26] MEDS: MONTELUKAST 10 MG TAB PO SCH (11:36)
[2024-04-26] MEDS: LEVOTHYROXINE 25 MCG TAB PO SCH (11:36)
[2024-04-26 15:25] VITALS: BMI 35.6
[2024-04-26] MEDS: NYSTATIN 100,000 UNIT/ML SUSP 500,000 UNIT/5 ML CUP PO SCH (23:32)
[2024-04-27] MEDS: ATORVASTATIN 10 MG TAB PO SCH (08:01)
[2024-04-27] MEDS: SERTRALINE 100 MG TAB PO SCH (08:01)
[2024-04-27] MEDS: amLODIPine 5 MG TAB PO SCH (08:01)
--- NOTE | 2024-04-27 09:53 | P.PN ---
Subjective Patient is a pleasant 73 years old female with past medical history as below Presents because of shortness of breath of 10 days duration Patient complaining from cough and clear phlegm but no overt chest pain She smokes about half pack per day and she was counseled to quit, she declines nicotine patch. No alcohol or illicit drugs No other new complaint like abdominal pain vomiting diarrhea no urinary complaint or headache dizziness weakness numbness She was saturating 85% on room air, currently she is mildly tachypneic She has unremarkable labs except for mild leukocytosis of 14.1, rest of CBC, BMP LFT is unremarkable RSV virus is positive while negative influenza and COVID Chest x-ray showing no acute process, I reviewed myself and agree EKG showing sinus rhythm at [address]-T changes 04/26 Patient still has extensive wheezing She remains on 2 L oxygen via nasal cannula She is on Solu-Medrol 60 mg increased dose yesterday She is eating well with no diarrhea. She is not getting IV fluids 05/25 Patient still has significant wheezing She feels better though she is able to walk to the restroom with little exertional dyspnea as she describes. Blood pressure slightly elevated 149/69. She is already on amlodipine 500 mg daily. Will add hydralazine as needed also we stopped her IV fluid Patient has good appetite no GI symptoms. Keep on IV Solu-Medrol 60 mg. Objective - Vital Signs Vital signs: Vital Signs Temp 98.1 F 04/27/24 07:44 Pulse 70 04/27/24 08:51 Resp 17 04/27/24 07:44 BP 149/81 04/27/24 07:44 Pulse Ox 98 04/27/24 07:44 FiO2 Intake & Output 04/26/24 04/27/24 04/27/24 18:59 06:59 18:59 Intake Total 1240 Balance 1240 Weight 85.729 kg Intake: Intake, IV Titration 600 Amount Sodium Chloride 0.9% 1, 600 000 ml @ 75 mls/hr IV . [id number] ASHLEY Rx#:[id number] Oral 640 Other: # Voids 4 2 - Exam GENERAL: The patient is alert and oriented x3, not in any acute distress. Well developed, well nourished. HEENT: Pupils are round and equally reacting to light. EOMI. No scleral icterus. No conjunctival pallor. Normocephalic, atraumatic. No pharyngeal erythema. No thyromegaly. CARDIOVASCULAR: S1 and S2 present. No murmurs, rubs, or gallops. -PULMONARY: Chest is clear to auscultation, extensive bilateral wheezing , no crackles. ABDOMEN: Soft, nontender, nondistended, normoactive bowel sounds. No palpable organomegaly. MUSCULOSKELETAL: No joint swelling or deformity. EXTREMITIES: No cyanosis, clubbing, or pedal edema. NEUROLOGICAL: Gross neurological examination did not reveal any focal deficits. SKIN: No rashes. no petechiae. - Labs CBC & Chem 7: 04/26/24 03:01 04/26/24 03:01 Assessment and Plan Assessment: Acute COPD exacerbation precipitated by viral infection RSV viral infection with bronchitis Acute hypoxic respiratory failure, present on admission Nicotine dependence Obesity with BMI of 35 Plan: Continue with IV Solu-Medrol Continue with bronchodilator Oxygen as needed Pulmonary team consult Labs and medication were reviewed.. Continue same treatment. Continue with symptomatic treatment. Resume home medication. Monitor labs and vitals. DVT and GI prophylaxis. Further recommendations as per clinical course of the patient DVT prophylaxis: Subcutaneous heparin GI Prophylaxis: Pepcid PT/OT: Pending Prognosis is guarded
[2024-04-27] MEDS: hydrALAZINE HCL 25 MG TAB PO PRN (12:14)
--- NOTE | 2024-04-27 14:47 | P.PN ---
Subjective Progress Note Date: 04/27/24 Patient is a 73-year-old female with past medical history significant for hypertension, hyperlipidemia, hypothyroidism, COPD, and current everyday smoker. Her primary care provider is a PA, Gretchen, out of Dr. Eboni Gamble's office. Presented to emergency department yesterday morning with difficulty in breathing, wheezing, and chest tightness worse over the last 2-3 days. Also, reporting associated rhinorrhea, sore throat, cough with yellow sputum production, reduced appetite. Daughter was sick with similar symptoms approximately 1 to 2 weeks ago. Recently seen at a local urgent care center on Thursday and was treated for COPD exacerbation. Reportedly, given oral steroids and antibiotic. Unfortunately, her symptoms did not improve. Workup in our emergency department including viral screen which was remarkable for RSV. A chest x-ray which did not show any acute cardiopulmonary process. CBC: WBC count 14.3, hemoglobin 11.7, hematocrit 38.7, platelets 229. CMP: Sodium 138, potassium 4.3, chloride 100, serum bicarb 29, BUN 21, creatinine 0.93, glucose 111. LFTs unremarkable. EKG: Normal sinus rhythm, rate 64 bpm, no acute ischemic changes. Patient currently being evaluated on general medical floor. Resting comfortably on 3 L/min nasal cannula. Denies home O2 use. Does endorse history of COPD. Uses a Trelegy inhaler, as needed DuoNebs, as well as a albuterol rescue inhaler. Current ongoing tobacco smoker, smokes 1/2 to 1 pack/day. Has diffuse expiratory wheezing heard bilaterally on auscultation. Endorses the above-mentioned symptoms. Denies any nausea, vomiting, diarrhea. He is tolerating oral fluids. No significant fevers or chills. No hemoptysis, chest pain. Current vital signs: Temperature 98 F, heart rate 63 bpm, blood pressure 129/58 mmHg, nontachypneic, SpO2 reading 95% on 3 L per nasal cannula. The patient is seen today April 27, 2024 in follow-up on the regular medical floor. She is currently sitting up in bed. Awake and alert in no acute distress. Doing a bit better today compared to yesterday. Not quite back to her baseline. She denies any worsening shortness of breath, cough or congestion. She is in the 90s on 2 L/min per nasal cannula. She has been up ambulating in her room with a walker. She is continued on DuoNeb inhalations, Symbicort, Solu-Medrol. She remains on Singulair. Heparin for DVT prophylaxis. Pepcid for GI prophylaxis. Objective - Vital Signs Vital signs: Vital Signs Temp 98.1 F 04/27/24 07:44 Pulse 68 04/27/24 11:52 Resp 17 04/27/24 07:44 BP 149/81 04/27/24 07:44 Pulse Ox 98 04/27/24 07:44 FiO2 Intake & Output 04/26/24 04/27/24 04/27/24 18:59 06:59 18:59 Intake Total 1240 Balance 1240 Weight 85.729 kg Intake: Intake, IV Titration 600 Amount Sodium Chloride 0.9% 1, 600 000 ml @ 75 mls/hr IV . [id number] [facility] Rx#:[id number] Oral 640 Other: # Voids 4 2 - Exam GENERAL EXAM: Alert, active, pleasant 73-year-old female, on 2 L nasal cannula, comfortable in no apparent distress. HEAD: Normocephalic. EYES: Normal reaction of pupils, equal size. NOSE: Clear with pink turbinates. THROAT: No erythema or exudates. NECK: No masses, no JVD. CHEST: No chest wall deformity. LUNGS: Equal air entry with bilateral scattered rhonchi, end expiratory wheeze. CVS: S1 and S2 normal with no audible murmur, regular rhythm. ABDOMEN: No hepatosplenomegaly, normal bowel sounds, no guarding or rigidity. SPINE: No scoliosis or deformity SKIN: No rashes CENTRAL NERVOUS SYSTEM: No focal deficits, tone is normal in all 4 extremities. EXTREMITIES: There is no peripheral edema. No clubbing, no cyanosis. P eripheral pulses are intact. - Labs CBC & Chem 7: 04/26/24 03:01 04/26/24 03:01 Assessment and Plan Assessment: Acute RSV bronchitis Acute COPD exacerbation, secondary to above Acute hypoxemic respiratory failure, currently on 2 L/min nasal cannula Hypertension History of hyperlipidemia Obesity, BMI of 35.7 kg/m Current ongoing tobacco dependence, with over [id number] history Plan: The patient was seen and evaluated Medications reviewed Continue DuoNeb inhalations Continue Symbicort, Singulair Continue Solu-Medrol Heparin for DVT prophylaxis Pepcid for GI prophylaxis Titrate down the FiO2 as tolerated Probable discharge in the a.m. I have personally seen and examined the patient, performed the documentation and the assessment and plan as written. Number of minutes spent on the visit: 10 Dictation was produced using [employer] dictation software. Please excuse any grammatical, word or spelling errors.
[2024-04-28 09:04] VITALS: BP 150/83; TEMP 98.1
[2024-04-28 11:08] VITALS: RESP 18
[2024-04-28 11:16] VITALS: PULSE 91
--- NOTE | 2024-04-28 13:33 | P.PN ---
Subjective Progress Note Date: 04/28/24 Patient is a 73-year-old female with past medical history significant for hypertension, hyperlipidemia, hypothyroidism, COPD, and current everyday smoker. Her primary care provider is a PA, Gretchen, out of Dr. Eboni Gamble's office. Presented to emergency department yesterday morning with difficulty in breathing, wheezing, and chest tightness worse over the last 2-3 days. Also, reporting associated rhinorrhea, sore throat, cough with yellow sputum production, reduced appetite. Daughter was sick with similar symptoms approximately 1 to 2 weeks ago. Recently seen at a local urgent care center on Thursday and was treated for COPD exacerbation. Reportedly, given oral steroids and antibiotic. Unfortunately, her symptoms did not improve. Workup in our emergency department including viral screen which was remarkable for RSV. A chest x-ray which did not show any acute cardiopulmonary process. CBC: WBC count 14.3, hemoglobin 11.7, hematocrit 38.7, platelets 229. CMP: Sodium 138, potassium 4.3, chloride 100, serum bicarb 29, BUN 21, creatinine 0.93, glucose 111. LFTs unremarkable. EKG: Normal sinus rhythm, rate 64 bpm, no acute ischemic changes. Patient currently being evaluated on general medical floor. Resting comfortably on 3 L/min nasal cannula. Denies home O2 use. Does endorse history of COPD. Uses a Trelegy inhaler, as needed DuoNebs, as well as a albuterol rescue inhaler. Current ongoing tobacco smoker, smokes 1/2 to 1 pack/day. Has diffuse expiratory wheezing heard bilaterally on auscultation. Endorses the above-mentioned symptoms. Denies any nausea, vomiting, diarrhea. He is tolerating oral fluids. No significant fevers or chills. No hemoptysis, chest pain. Current vital signs: Temperature 98 F, heart rate 63 bpm, blood pressure 129/58 mmHg, nontachypneic, SpO2 reading 95% on 3 L per nasal cannula. The patient is seen today April 27, 2024 in follow-up on the regular medical floor. She is currently sitting up in bed. Awake and alert in no acute distress. Doing a bit better today compared to yesterday. Not quite back to her baseline. She denies any worsening shortness of breath, cough or congestion. She is in the 90s on 2 L/min per nasal cannula. She has been up ambulating in her room with a walker. She is continued on DuoNeb inhalations, Symbicort, Solu-Medrol. She remains on Singulair. Heparin for DVT prophylaxis. Pepcid for GI prophylaxis. The patient is seen today April 28, 2024 in follow-up on the regular medical floor. She is currently sitting up in a chair. Awake and alert in no acute distress. Feeling quite a bit better today compared to yesterday. Denies any worsening shortness of breath, cough or congestion. Maintaining good O2 saturations in the upper 90s on 2 L/min per nasal cannula. She has been afebrile. Hemodynamically stable. She remains on DuoNeb and elations, Symbicort, Solu-Medrol and Singulair. Heparin for DVT prophylaxis. Tessalon Perles for her cough. Objective - Vital Signs Vital signs: Vital Signs Temp 98.1 F 04/28/24 07:30 Pulse 91 04/28/24 11:16 Resp 18 04/28/24 11:16 BP 150/83 04/28/24 07:30 Pulse Ox 97 04/28/24 11:03 FiO2 Intake & Output 04/27/24 04/28/24 04/28/24 18:59 06:59 18:59 Intake Total 690 Balance 690 Weight 85.729 kg Intake: Intake, IV Titration 0 Amount Sodium Chloride 0.9% 1, 0 000 ml @ 75 mls/hr IV . [id number] [facility] Rx#:[id number] Oral 690 Other: # Voids 3 1 # Bowel Movements 1 - Exam GENERAL EXAM: Alert, 73-year-old female, up in a chair, on 2 L nasal cannula, comfortable in no apparent distress. HEAD: Normocephalic. EYES: Normal reaction of pupils, equal size. NOSE: Clear with pink turbinates. THROAT: No erythema or exudates. NECK: No masses, no JVD. CHEST: No chest wall deformity. LUNGS: Equal air entry with bilateral end expiratory wheeze. CVS: S1 and S2 normal with no audible murmur, regular rhythm. ABDOMEN: No hepatosplenomegaly, normal bowel sounds, no guarding or rigidity. SPINE: No scoliosis or deformity SKIN: No rashes CENTRAL NERVOUS SYSTEM: No focal deficits, tone is normal in all 4 extremities. EXTREMITIES: There is no peripheral edema. No clubbing, no cyanosis. Peripheral pulses are intact. - Labs CBC & Chem 7: 04/26/24 03:01 04/26/24 03:01 Assessment and Plan Assessment: Acute RSV bronchitis Acute COPD exacerbation, secondary to above Acute hypoxemic respiratory failure, currently on 2 L/min nasal cannula Hypertension History of hyperlipidemia Obesity, BMI of 35.7 kg/m Current ongoing tobacco dependence, with over [id number] history Plan: The patient was seen and evaluated Medications reviewed Cleared for discharge Continue her home TreleNaseem castilloulaviky, albuterol Complete a prednisone taper Educated regarding smoking cessation Follow-up in our office in 1 week I have personally seen and examined the patient, performed the documentation and the assessment and plan as written. Number of minutes spent on the visit: 10 Dictation was produced using [employer] dictation software. Please excuse any gram matical, word or spelling errors.
== END 2024-04-28 13:38 | disposition home or self-care (01) | DRG 190 ==
LOC: EC 08:50 → 4SSUR 12:22
PROVIDERS: ADMIT Internal Medicine; ATTEND Internal Medicine
DX: J44.0 Chronic obstructive pulmonary disease with (acute) lower respiratory infection (principal); J96.01 Acute respiratory failure with hypoxia; J44.1 Chronic obstructive pulmonary disease with (acute) exacerbation; Z68.35 Body mass index [BMI] 35.0-35.9, adult; I10 Essential (primary) hypertension; E03.9 Hypothyroidism, unspecified; J21.0 Acute bronchiolitis due to respiratory syncytial virus; Z11.52 Encounter for screening for COVID-19; J20.5 Acute bronchitis due to respiratory syncytial virus; F17.210 Nicotine dependence, cigarettes, uncomplicated; E66.9 Obesity, unspecified; E78.5 Hyperlipidemia, unspecified; Z71.6 Tobacco abuse counseling; Z79.899 Other long term (current) drug therapy; Z79.890 Hormone replacement therapy
CPT/HCPCS: 36415; 71046; 80053; 81001; 83605; 83735; 85025; 85610; 85730; 87636; 93005; 94640; 94760; 96365; 96375; 96376; 99291